=== PATIENT | male | born 1970 | race Caucasian/White ===

== ENCOUNTER → 2020-12-29 09:57 | Outpatient (BNVA) | payer MEDICAID, SELFPAY | PROVIDERS: PCP Family Medicine; Referring Provider Family Medicine; Visit Provider Nurse Practitioner Family | DX: K58.2 Mixed irritable bowel syndrome (principal); R14.0 Abdominal distension (gaseous) | CPT/HCPCS: 99202 ==

== ENCOUNTER 2021-01-04 12:51 | Outpatient (REF) | payer MEDICAID, SELFPAY ==
[2021-01-04 13:37] LABS: Hematocrit 45.9 % (42-52); Hemoglobin 16.4 g/dl (14.0-18.0); Mean Corpuscular HGB Conc 35.7 g/dl (31.0-36.0); Mean Corpuscular Hemoglobin 30.8 pg (27.0-33.0); Mean Corpuscular Volume 86.3 fL (80-98); Mean Platelet Volume 9.8 fL (9.4-12.4); Platelet Count 231 X10*3/uL (160-400); Red Blood Count 5.32 X10*6/uL (4.60-5.80); Red Cell Distribution Width 13.3 % (11.0-16.0); White Blood Count 5.9 X10*3/uL (4.8-10.8)
[2021-01-04 13:53] LABS: Alanine Aminotransferase 33 U/L (0-40); Albumin Level 4.6 g/dL (3.5-5.0); Alkaline Phosphatase 69 U/L (39-117); Anion Gap 12 (12-20); Aspartate Amino Transferase 25 U/L (5-37); Bilirubin Total 0.8 mg/dL (0.0-1.0); Blood Urea Nitrogen 14 mg/dL (9-16); C Reactive Protein 0.43 mg/dL (< or = 0.50); Calcium 9.6 mg/dL (8.4-10.2); Carbon Dioxide 26 mmol/L (22-29); Chloride 106 mmol/L (96-108); Estimated Glomerular Filt Rate > 60; Glucose Random 92 mg/dL (60-115); Lipase 31 U/L (8-78); Potassium 4.4 mmol/L (3.3-5.1); Sodium 140 mmol/L (135-145); Total Protein 7.5 g/dL (6.5-8.0)
[2021-01-06 17:26] LABS: Transglutaminase Ab IgG <1.0 U/mL; Transglutaminase IgA <1.0 U/mL
== END 2021-01-04 12:52 | disposition home or self-care (01) ==
LOC: HO.LAB 12:51
PROVIDERS: PCP Family Medicine; Visit Provider Nurse Practitioner Family
DX: K58.0 Irritable bowel syndrome with diarrhea (principal); R10.11 Right upper quadrant pain; R14.0 Abdominal distension (gaseous); Z12.11 Encounter for screening for malignant neoplasm of colon
CPT/HCPCS: 36415; 80053; 83516; 83690; 85027; 86140

== ENCOUNTER 2021-02-01 10:21 | Outpatient (REF) | payer MEDICAID, SELFPAY | END 2021-02-01 10:22 | disposition home or self-care (01) | LOC: HO.CT 10:21 | PROVIDERS: Visit Provider Nurse Practitioner Family | DX: Z13.89 Encounter for screening for other disorder (principal) ==

== ENCOUNTER 2021-02-14 13:59 | Outpatient (REF) | payer MEDICAID, SELFPAY ==
[2021-02-14 14:47] LABS: Blood Urea Nitrogen 16 mg/dL (9-16); Estimated Glomerular Filt Rate > 60
== END 2021-02-14 14:00 | disposition home or self-care (01) ==
LOC: HO.LAB 13:59
PROVIDERS: PCP Family Medicine; Visit Provider Nurse Practitioner Family
DX: R10.9 Unspecified abdominal pain (principal)
CPT/HCPCS: 36415; 82565; 84520

== ENCOUNTER 2021-02-15 08:17 | Outpatient (REF) | payer MEDICAID, SELFPAY ==
--- NOTE | ~2021-02-15 | CT_ITS ---
EXAMINATION: CT ABDOMEN AND PELVIS WITH CONTRAST CLINICAL INFORMATION: Abdominal pain. COMPARISON: None TECHNIQUE: Multidetector volumetric images were obtained from the superior aspect of the liver through the pubic symphysis following administration 85 mL of Omnipaque 350 intravenous contrast. Sagittal and coronal reformatted images were obtained on the technologist's workstation. Oral contrast: Administered This CT examination was performed using dose optimization techniques as appropriate, variously including the following: *Automated exposure control *Adjustment of mA and/or kV according to patient size (this includes techniques or standardized protocols for targeted exams where dose is matched to indication/reason for exam; i.e. extremities or head) *Use of iterative reconstruction technique DLP: 623 mGy-cm FINDINGS: LUNG BASES: The visualized lung bases are unremarkable. LIVER, GALLBLADDER, AND BILIARY TREE: The liver is normal in size, shape, and attenuation. No focal hepatic lesion or biliary ductal dilatation is present. The gallbladder is unremarkable with no evidence of radiopaque gallstones, gallbladder wall thickening, or obvious pericholecystic inflammatory changes. PANCREAS: Unremarkable. SPLEEN: Unremarkable. ADRENAL GLANDS: Unremarkable. KIDNEYS AND URETERS: The kidneys are normal in size, shape, and attenuation. No hydronephrosis, hydroureter, or calculi seen. No perinephric stranding. BLADDER: Unremarkable. GASTROINTESTINAL TRACT: The small and large bowel are unremarkable. The appendix is nonvisualized. There is no inflammation of the mesentery. ABDOMINAL WALL: No significant hernia is appreciated. LYMPH NODES: Normal. VASCULAR: Small volume of calcifications of the wall of the abdominal aorta. Normal enhancement of the vasculature of the abdomen and the pelvis. PELVIC VISCERA: Unremarkable. OSSEOUS STRUCTURES: Unremarkable. CT/CT abdomen pelvis w con IMPRESSION: No acute abnormality CT scan abdomen pelvis.
[2021-02-15] MEDS: iohexoL 350 MG/ML 100 ML INFUS..BTL IV (10:37)
[2021-02-15] MEDS: Barium Sulfate Oral (Mocha) 450 ML ORAL.SUSP 900 ML PO (10:37)
== END 2021-02-15 08:18 | disposition home or self-care (01) ==
LOC: HO.CT 08:17
PROVIDERS: PCP Family Medicine; Visit Provider Nurse Practitioner Family
DX: R10.9 Unspecified abdominal pain (principal)
CPT/HCPCS: 74177; Q9967

== ENCOUNTER → 2021-06-29 11:00 | Outpatient (BNVA) | payer MEDICAID, SELFPAY | PROVIDERS: PCP Family Medicine; Referring Provider Family Medicine; Visit Provider Nurse Practitioner Family | DX: Z01.818 Encounter for other preprocedural examination (principal); K58.2 Mixed irritable bowel syndrome; R14.0 Abdominal distension (gaseous) | CPT/HCPCS: 99212 ==

== ENCOUNTER 2021-11-14 07:39 | Day surgery (SDC) | payer MEDICAID, SELFPAY ==
[2021-11-09 09:36] VITALS: BMI 34.1
--- NOTE | 2021-11-13 11:02 | P.CONAN_ITS ---
Documented by User: Brittaney Li NP 11/13/21 11:02 HPI - Anesthesia Eval Consult details Narrative: 51yo M for Colonoscopy [facility] Past Medical History Medical History (Updated 11/13/21 @ 07:59 by Shantell Ontiveros RN) HIV disease Family History Family History Paternal Grandmother Colon cancer Surgical History Surgical History (Updated 11/13/21 @ 08:00 by Shantell Ontiveros, RN) Hx of colonoscopy Social History Social History Alcohol intake: current Tobacco use type: Cigarette Cigarette Packs Per Day: 1 Advance Directives: No Advance Directives Information Provided: Yes Meds Allergies Allergy/AdvReac Type Severity Reaction Status Date / Time No Known Allergies Allergy Verified 06/29/21 11:07 Home Medications Medication Instructions Recorded Confirmed Last Taken Type abacavir 600 mg-dolutegravir 50 1 tab PO DAILY 12/29/20 Unknown History mg-lamivudine 300 mg tablet (Triumeq) Exam Exam Date and Time: November 13, 2021 1102 Height,Weight and Vital Signs: Height 5 ft 10 in Weight 107.955 kg Assessment and Plan Assessment Anesthesia Assessment: Chart Reviewed Documented by User: Rea Garcia MD 11/14/21 07:59 [facility] Past Medical History Medical History (Updated 11/13/21 @ 07:59 by Shantell Ontiveros RN) HIV disease Family History Family History Paternal Grandmother Colon cancer Family history of problems with anesthesia: No Surgical History Surgical History (Updated 11/13/21 @ 08:00 by Shantell Ontiveros RN) Hx of colonoscopy History of Problems with Anesthesia: No Social History Social History Alcohol intake: current Tobacco use type: Cigarette Cigarette Packs Per Day: 1 Advance Directives: No Advance Directives Information Provided: Yes Meds Allergies Allergy/AdvReac Type Severity Reaction Status Date / Time No Known Allergies Allergy Verified 06/29/21 11:07 Home Medications Medication Instructions Recorded Confirmed Last Taken Type abacavir 600 mg-dolutegravir 50 1 tab PO DAILY 12/29/20 Unknown History mg-lamivudine 300 mg tablet (Triumeq) Exam Airway Mallampati Class: III TM Dist: >3cm Neck ROM: Full Denture: Upper Heart: rrr Lungs: cta Assessment and Plan Assessment Anesthesia Assessment: Anesthesia Plan Discussed and Chart Reviewed Final Anesthetic Review Family History of Problems with Anesthesia: No History of Problems with Anesthesia: No NPO: Yes ASA Class: II Final Preanesthetic Review: No Changes in Pt Med Stat, Meds/Allgs Chart Reviewed and Consent Obtained/Reviewed Patient Risk: Intermediate Procedure Risk: Intermediate Anesthetic Plan Anesthetic Plan: MAC: Disposition: Standard PACU
[2021-11-14 08:00] VITALS: BMI 31.5
--- NOTE | 2021-11-14 08:05 | W.PM.OPN ---
Operative Note Operative Note Date of Service: 11/14/21 Narrative: Operative Information Procedure Description: Colonoscopy Indication: screening Anesthesia: MAC COLONOSCOPY Instrument: Olympus variable stiffness pediatric scope 190L Colonoscopy Monitoring: Vital signs and clinical assessment, continuous EKG monitoring, Pulse oximetry, Carbon Dioxide monitoring and blood pressure monitoring were done throughout the procedure. Colon withdrawal time was 10 minutes. Procedure: The patient was placed in the left lateral decubitis position and pre-procedure medications were administered. After a digital rectal examination of the ano-rectum, the video colonoscope was inserted into the rectum and advanced through the colon to the cecum/TI. The colonoscope was slowly withdrawn in a retrograde panoramic fashion and the colon mucosa was carefully examined including a retroflexed view of the rectum. Findings and interventions are described below. Procedure Difficulty: moderate due to looping Findings: Terminal Ileum-not intubated due to looping Cecum:normal Ascending Colon: 10 mm sessile polyp removed with cold snare Transverse Colon -normal Descending Colon:normal Sigmoid Colon: normal Rectum: Retroflexion with small internal hemorrhoids, grade I Anorectum - normal Colon preparation: Brethren Bowel Preparation Scale Right colon; 2 Transverse colon: 2 Left colon; 1-2 (0 = Unprepared colon segment with mucosa not seen due to solid stool that cannot be cleared. 1 = Portion of mucosa of the colon segment seen, but other areas of the colon segment not well seen due to staining, residual stool and/or opaque liquid. 2 = Minor amount of residual staining, small fragments of stool and/or opaque liquid, but mucosa of colon segment seen well. 3 = Entire mucosa of colon segment seen well with no residual staining, small fragments of stool or opaque liquid) Impression and Post Procedure Diagnosis: polyp internal hemorrhoids Plan: High fiber diet leaflet Avoid straining at stool, epsom salts and sitz bath, anusol supps or cream Repeat Colonoscopy in 5 years due to polyp and fair prep on the left side or earlier if clinically indicated Above findings were reviewed with the patient and relevant handouts were provided if indicated.
--- NOTE | 2021-11-14 08:06 | MHC.SHP ---
Pre-Procedural Eval Section A Date of Service: 11/14/21 Section B Chief Complaint: screening Relevant Family History (Specify if Yes): Yes Relevant Social History: Tobacco Use Present Medications: see Short Stay Collaborative assessment Medical History: Significant History (HIV) History of Previous Operations: No relevant previous surgery Allergies: Allergies Allergy/AdvReac Type Severity Reaction Status Date / Time No Known Allergies Allergy Verified 06/29/21 11:07 Review of Systems Sugical H&P ROS: Negative: Constitution, Cardiovascular, Respiratory, Neurological, Psychiatric, Hem-Onc, Allergic/Immunologic, Gastrointestinal, Genitourinary, Musculoskeletal, Integumentary, Endocrine and Eyes/Ears/Nose/Throat Exam Surgical H&P Exam: Normal: HEENT, Normal: Heart, Normal: Lungs, Normal: Extremities, Normal: Abdomen, Normal: Skin and Normal: Neurological Plan Diagnosis/Plan: Unchanged I have reviewed the history and physical and performed a pertinent physical examination on my patient. No changes have occurred unless specified.
[2021-11-14 08:09] VITALS: BP 120/83; PULSE 64; RESP 16; TEMP 35.8; O2SAT 98
[2021-11-14] MEDS: Lactated Ringers 1,000 ML 100 ML IVCONT (08:11)
[2021-11-14 09:30] VITALS: BP 102/63; PULSE 64; RESP 16; TEMP 36.1; O2SAT 94
[2021-11-14 09:45] VITALS: BP 106/77; PULSE 74; RESP 16; TEMP 36.1; O2SAT 98
== END 2021-11-14 10:19 | disposition home or self-care (01) ==
PROVIDERS: PCP Family Medicine; Visit Provider Internal Medicine Gastroenterology
PROC: 0DJD8ZZ Inspection of Lower Intestinal Tract, Via Natural or Artificial Opening Endoscopic (ICD-10-PCS; CPT 45378; principal; 2021-11-14 09:20)
DX: Z12.11 Encounter for screening for malignant neoplasm of colon (principal); K63.5 Polyp of colon; K64.0 First degree hemorrhoids; K58.2 Mixed irritable bowel syndrome; R14.0 Abdominal distension (gaseous); B20 Human immunodeficiency virus [HIV] disease; Z79.899 Other long term (current) drug therapy; F17.210 Nicotine dependence, cigarettes, uncomplicated
CPT/HCPCS: 45385; 88305

== ENCOUNTER 2023-02-10 12:17 | Outpatient (REF) | payer MEDICAID, SELFPAY ==
[2023-02-10 13:20] LABS: MANUAL DIFF FLAG NO
[2023-02-10 13:43] LABS: Basophils Absolute Auto 0.1 X10*3/uL (0.0-0.2); Basophils Percent Auto 0.9 % (0-2); Eosinophils Absolute Auto 0.3 X10*3/uL (0.0-0.4); Eosinophils Percent Auto 4.6 % (0-4); Hematocrit 43.1 % (42.0-52.0); Hemoglobin 15.6 g/dl (14.0-18.0); Imm Gran Abs Auto 0.02 X10*3/uL (0.00-0.03); Imm Gran Pct Auto 0.3 % (0.0-0.4); Lymphocytes Absolute Auto 2.6 X10*3/uL (1.2-4.9); Lymphocytes Percent Auto 44.2 % (20-40); Mean Corpuscular HGB Conc 36.2 g/dl (31.0-36.0); Mean Corpuscular Hemoglobin 30.5 pg (27.0-33.0); Mean Corpuscular Volume 84.3 fL (80.0-98.0); Mean Platelet Volume 9.6 fL (9.4-12.4); Monocytes Absolute Auto 0.6 X10*3/uL (0.1-1.2); Monocytes Percent Auto 10.9 % (2-11); Neutrophils Absolute Auto 2.3 x10*3/uL (2.0-8.3); Neutrophils Percent Auto 39.1 % (45-73); Platelet Count 266 X10*3/uL (160-400); Red Blood Count 5.11 X10*6/uL (4.60-5.80); Red Cell Distribution Width 12.5 % (11.0-16.0); White Blood Count 5.9 X10*3/uL (4.8-10.8)
[2023-02-10 14:05] LABS: Appearance Urine Clear; Color Urine Yellow; Glucose Urine UA Negative (Negative); Leukocyte Esterase Urine Negative (Negative); Nitrite Urine Negative (Negative); PH 5.5 (5.0-9.0); Specific Gravity - Urine >= 1.030 (1.005-1.025); UMIC TRIGGER UACC YES; Urine Blood Trace (Negative); Urine Ketones Negative (Negative); Urine Protein Trace mg/dL (Neg-Trace)
[2023-02-10 14:06] LABS: Alanine Aminotransferase 40 U/L (0-40); Albumin Level 4.3 g/dL (3.5-5.0); Alkaline Phosphatase 70 U/L (39-117); Anion Gap 11 (12-20); Aspartate Amino Transferase 25 U/L (5-37); Bilirubin Total 0.4 mg/dL (0.0-1.0); Blood Urea Nitrogen 15 mg/dL (9-16); Calcium 9.3 mg/dL (8.4-10.2); Carbon Dioxide 26 mmol/L (22-29); Chloride 106 mmol/L (96-108); Estimated Glomerular Filt Rate 59; Glucose Random 100 mg/dL (60-115); Potassium 3.7 mmol/L (3.3-5.1); Sodium 139 mmol/L (135-145); Total Protein 7.7 g/dL (6.5-8.0)
[2023-02-10 14:08] LABS: Bacteria Urine None Seen (None Seen); Hyaline Casts Urine 0-2 /LPF (0-2); RBC Urine 0-2 /HPF (0-2); Squamous Epithelial Cell Urine 0-2 /HPF (0-2); WBC Urine 0-5 /HPF (0-5)
[2023-02-10 14:31] LABS: Syphilis Screen Reactive (Nonreactive)
[2023-02-11 10:23] LABS: Absolute CD3 Count 1864 cells/uL (840-3060); Absolute CD4 Count 1109 cells/uL (490-1740); Absolute CD8 Count 781 cells/uL (180-1170); Absolute Lymphocytes 2600 cells/uL (850-3900); CD4 CD8 Ratio 1.42 (0.86-5.00); Percent CD3 Cells 72 % (57-85); Percent CD4 Cells 43 % (30-61); Percent CD8 Cells 30 % (12-42)
[2023-02-12 09:03] LABS: HIV RNA PCR Qn Copies <20 DETECTED copies/mL (NOT DETECTED); HIV RNA PCR Qn Log Copies <1.30 DETECTED (NOT DETECTED)
[2023-02-12 17:18] LABS: HCV Log PCR <1.18 NOT DETECTED Log IU/mL (NOT DETECTED); HepC Viral Load <15 NOT DETECTED IU/mL (NOT DETECTED)
[2023-02-12 17:43] LABS: TS Negative Control Passed; TS Panel A 0; TS Panel B 0; TS Positive Control Passed; TSpotTB Negative (Negative)
[2023-02-17 09:51] LABS: RPR Quantitative Non-Reactive (Nonreactive); T.Pallidum Particle Agg Test Reactive (Nonreactive)
== END 2023-02-10 12:18 | disposition home or self-care (01) ==
LOC: HO.HHCL 12:17
PROVIDERS: Visit Provider Student in an Organized Health Care Education/Training Program
DX: B20 Human immunodeficiency virus [HIV] disease (principal)
CPT/HCPCS: 36415; 80053; 81001; 85025; 86359; 86360; 86481; 86592; 86780; 87522; 87536

== ENCOUNTER 2023-09-08 09:39 | Outpatient (REF) | payer MEDICAID, SELFPAY ==
[2023-09-08 11:45] LABS: MANUAL DIFF FLAG NO
[2023-09-08 11:47] LABS: Basophils Absolute Auto 0.1 X10*3/uL (0.0-0.2); Eosinophils Absolute Auto 0.3 X10*3/uL (0.0-0.4); Eosinophils Percent Auto 5.3 % (0-4); Hematocrit 44.6 % (42.0-52.0); Hemoglobin 15.8 g/dl (14.0-18.0); Imm Gran Abs Auto 0.02 X10*3/uL (0.00-0.03); Imm Gran Pct Auto 0.4 % (0.0-0.4); Lymphocytes Absolute Auto 2.4 X10*3/uL (1.2-4.9); Lymphocytes Percent Auto 47.7 % (20-40); Mean Corpuscular HGB Conc 35.4 g/dl (31.0-36.0); Mean Corpuscular Hemoglobin 30.2 pg (27.0-33.0); Mean Corpuscular Volume 85.1 fL (80.0-98.0); Mean Platelet Volume 9.8 fL (9.4-12.4); Monocytes Absolute Auto 0.6 X10*3/uL (0.1-1.2); Monocytes Percent Auto 11.7 % (2-11); Neutrophils Absolute Auto 1.7 x10*3/uL (2.0-8.3); Neutrophils Percent Auto 33.9 % (45-73); Platelet Count 221 X10*3/uL (160-400); Red Blood Count 5.24 X10*6/uL (4.60-5.80); Red Cell Distribution Width 13.6 % (11.0-16.0); White Blood Count 5.1 X10*3/uL (4.8-10.8)
[2023-09-08 12:09] LABS: Alanine Aminotransferase 44 U/L (0-40); Albumin Level 4.3 g/dL (3.5-5.0); Alkaline Phosphatase 69 U/L (39-117); Anion Gap 8 (12-20); Aspartate Amino Transferase 25 U/L (5-37); Bilirubin Total 0.6 mg/dL (0.0-1.0); Blood Urea Nitrogen 14 mg/dL (9-16); Calcium 9.9 mg/dL (8.4-10.2); Carbon Dioxide 29 mmol/L (22-29); Chloride 105 mmol/L (96-108); Estimated Glomerular Filt Rate > 60; Glucose Random 106 mg/dL (60-115); Potassium 4.4 mmol/L (3.3-5.1); Sodium 138 mmol/L (135-145); Total Protein 7.5 g/dL (6.5-8.0)
[2023-09-09 12:08] LABS: Absolute CD3 Count 1839 cells/uL (840-3060); Absolute CD4 Count 1074 cells/uL (490-1740); Absolute CD8 Count 779 cells/uL (180-1170); Absolute Lymphocytes 2532 cells/uL (850-3900); CD4 CD8 Ratio 1.38 (0.86-5.00); Percent CD3 Cells 73 % (57-85); Percent CD4 Cells 42 % (30-61); Percent CD8 Cells 31 % (12-42)
[2023-09-10 09:03] LABS: HIV RNA PCR Qn Copies 71 copies/mL (NOT DETECTED); HIV RNA PCR Qn Log Copies 1.85 (NOT DETECTED)
[2023-09-11 18:19] LABS: C. Trachomatis RNA TMA, Throat NOT DETECTED; N. gonorrhoeae RNA TMA, Throat NOT DETECTED
[2023-09-12 02:48] LABS: C.Trachomatis RNA TMA, Rectal NOT DETECTED; N.Gonorrhoeae RNA TMA, Rectal NOT DETECTED
== END 2023-09-08 09:40 | disposition home or self-care (01) ==
LOC: HO.HHCL 09:39
PROVIDERS: Visit Provider Student in an Organized Health Care Education/Training Program
DX: B20 Human immunodeficiency virus [HIV] disease (principal)
CPT/HCPCS: 36415; 80053; 85025; 86359; 86360; 87491; 87536; 87591

== ENCOUNTER 2023-12-15 09:47 | Outpatient (REF) | payer MEDICAID, SELFPAY ==
[2023-12-15 12:17] LABS: Estimated Average Glucose 105 mg/dL; Hemoglobin A1c % 5.3 % (<6.0)
[2023-12-15 12:31] LABS: Cholesterol 133 mg/dL (<200); HDL Cholesterol 29 mg/dL (>40); LDL Cholesterol Calculated 61 mg/dL (<100); TSH reflex Free T4 1.59 uIU/mL (0.32-4.0); Triglycerides 217 mg/dL (<150)
[2023-12-17 19:09] LABS: HIV RNA PCR Qn Copies 145 copies/mL (NOT DETECTED); HIV RNA PCR Qn Log Copies 2.16 (NOT DETECTED)
[2023-12-20 12:53] LABS: Testosterone, Total 331 ng/dL (250-1100)
== END 2023-12-15 09:48 | disposition home or self-care (01) ==
LOC: HO.HHCL 09:47
PROVIDERS: PCP Registered Nurse; Visit Provider Student in an Organized Health Care Education/Training Program
DX: Z00.00 Encounter for general adult medical examination without abnormal findings (principal); B20 Human immunodeficiency virus [HIV] disease; R68.82 Decreased libido
CPT/HCPCS: 36415; 80061; 83036; 84403; 84443; 87536

== ENCOUNTER 2024-07-05 08:40 | Outpatient (REF) | payer MEDICAID, SELFPAY ==
[2024-07-05 11:20] LABS: MANUAL DIFF FLAG NO
[2024-07-05 11:24] LABS: Basophils Absolute Auto 0.1 X10*3/uL (0.0-0.2); Basophils Percent Auto 0.9 % (0-2); Eosinophils Absolute Auto 0.2 X10*3/uL (0.0-0.4); Eosinophils Percent Auto 3.8 % (0-4); Hemoglobin 15.7 g/dl (14.0-18.0); Imm Gran Abs Auto 0.02 X10*3/uL (0.00-0.03); Imm Gran Pct Auto 0.4 % (0.0-0.4); Lymphocytes Absolute Auto 2.3 X10*3/uL (1.2-4.9); Lymphocytes Percent Auto 43.2 % (20-40); Mean Corpuscular HGB Conc 34.9 g/dl (31.0-36.0); Mean Corpuscular Hemoglobin 30.1 pg (27.0-33.0); Mean Corpuscular Volume 86.4 fL (80.0-98.0); Mean Platelet Volume 9.8 fL (9.4-12.4); Monocytes Absolute Auto 0.5 X10*3/uL (0.1-1.2); Monocytes Percent Auto 10.2 % (2-11); Neutrophils Absolute Auto 2.2 x10*3/uL (2.0-8.3); Neutrophils Percent Auto 41.5 % (45-73); Platelet Count 219 X10*3/uL (160-400); Red Blood Count 5.21 X10*6/uL (4.60-5.80); Red Cell Distribution Width 13.4 % (11.0-16.0); White Blood Count 5.3 X10*3/uL (4.8-10.8)
[2024-07-05 11:29] LABS: Basophils Absolute Auto 0.1 X10*3/uL (0.0-0.2); Basophils Percent Auto 0.9 % (0-2); Eosinophils Absolute Auto 0.2 X10*3/uL (0.0-0.4); Eosinophils Percent Auto 3.5 % (0-4); Hematocrit 43.9 % (42.0-52.0); Hemoglobin 15.7 g/dl (14.0-18.0); Imm Gran Abs Auto 0.01 X10*3/uL (0.00-0.03); Imm Gran Pct Auto 0.2 % (0.0-0.4); Lymphocytes Absolute Auto 2.5 X10*3/uL (1.2-4.9); Lymphocytes Percent Auto 43.4 % (20-40); Mean Corpuscular HGB Conc 35.8 g/dl (31.0-36.0); Mean Corpuscular Hemoglobin 30.1 pg (27.0-33.0); Mean Corpuscular Volume 84.3 fL (80.0-98.0); Mean Platelet Volume 9.7 fL (9.4-12.4); Monocytes Absolute Auto 0.6 X10*3/uL (0.1-1.2); Monocytes Percent Auto 10.3 % (2-11); Neutrophils Absolute Auto 2.4 x10*3/uL (2.0-8.3); Neutrophils Percent Auto 41.7 % (45-73); Platelet Count 227 X10*3/uL (160-400); Red Blood Count 5.21 X10*6/uL (4.60-5.80); Red Cell Distribution Width 13.3 % (11.0-16.0); White Blood Count 5.7 X10*3/uL (4.8-10.8)
[2024-07-05 12:55] LABS: Alanine Aminotransferase 37 U/L (0-40); Albumin Level 4.4 g/dL (3.5-5.0); Alkaline Phosphatase 92 U/L (39-117); Anion Gap 14 (12-20); Aspartate Amino Transferase 36 U/L (5-37); Bilirubin Total 0.5 mg/dL (0.0-1.0); Blood Urea Nitrogen 22 mg/dL (9-16); Calcium 9.2 mg/dL (8.4-10.2); Carbon Dioxide 24 mmol/L (22-29); Chloride 103 mmol/L (96-108); Cholesterol 131 mg/dL (<200); Estimated Glomerular Filt Rate > 60; Glucose Random 105 mg/dL (60-115); HDL Cholesterol 32 mg/dL (>40); LDL Cholesterol Calculated 76 mg/dL (<100); Potassium 3.7 mmol/L (3.3-5.1); Sodium 137 mmol/L (135-145); Total Protein 7.3 g/dL (6.5-8.0); Triglycerides 119 mg/dL (<150)
[2024-07-05 13:21] LABS: Alanine Aminotransferase 33 U/L (0-40); Albumin Level 4.3 g/dL (3.5-5.0); Alkaline Phosphatase 76 U/L (39-117); Anion Gap 12 (12-20); Aspartate Amino Transferase 35 U/L (5-37); Bilirubin Total 0.4 mg/dL (0.0-1.0); Blood Urea Nitrogen 18 mg/dL (9-16); Calcium 9.1 mg/dL (8.4-10.2); Carbon Dioxide 25 mmol/L (22-29); Chloride 104 mmol/L (96-108); Estimated Glomerular Filt Rate > 60; Glucose Random 108 mg/dL (60-115); Potassium 3.7 mmol/L (3.3-5.1); Sodium 137 mmol/L (135-145); Total Protein 7.1 g/dL (6.5-8.0)
[2024-07-05 14:49] LABS: Reflex LDLD? No
[2024-07-06 04:41] LABS: ~HepC Num1 4.98 S/CO (0.00-0.79); ~Hepatitis C Antibody Reactive (Nonreactive)
[2024-07-06 11:19] LABS: RPR Rapid Plasma Reagin NON-REACTIVE (NON-REACTIVE)
[2024-07-07 04:18] LABS: HIV RNA PCR Qn Copies 370 copies/mL (NOT DETECTED); HIV RNA PCR Qn Log Copies 2.57 (NOT DETECTED)
[2024-07-08 06:22] LABS: TS Negative Control Passed; TS Panel A 0; TS Panel A 2; TS Panel B 0; TS Positive Control Passed; TSpotTB Negative (Negative)
[2024-07-08 17:47] LABS: Absolute CD3 Count 1741 cells/uL (840-3060); Absolute CD4 Count 1047 cells/uL (490-1740); Absolute CD8 Count 705 cells/uL (180-1170); Absolute Lymphocytes 2351 cells/uL (850-3900); CD4 CD8 Ratio 1.49 (0.86-5.00); Percent CD3 Cells 74 % (57-85); Percent CD4 Cells 45 % (30-61); Percent CD8 Cells 30 % (12-42)
[2024-07-09 15:38] LABS: HCV Log PCR <1.18 NOT DETECTED Log IU/mL (NOT DETECTED); HepC Viral Load <15 NOT DETECTED IU/mL (NOT DETECTED)
[2024-07-18 18:43] LABS: HIV 1 Integrase Proviral DNA DETECTED; HIV 1 PR RT Proviral DNA DETECTED
== END 2024-07-05 08:41 | disposition home or self-care (01) ==
LOC: HO.HHCL 08:40
PROVIDERS: Student in an Organized Health Care Education/Training Program; Visit Provider Internal Medicine
DX: B20 Human immunodeficiency virus [HIV] disease (principal); E78.1 Pure hyperglyceridemia
CPT/HCPCS: 36415; 80053; 80061; 85025; 86359; 86360; 86481; 86592; 86735; 86762; 86765; 86803; 87522; 87536; 87900; 87901; 87906

== ENCOUNTER → 2024-07-07 08:15 | Outpatient (BNV) | payer MEDICAID, SELFPAY | PROVIDERS: PCP Registered Nurse; Visit Provider Radiology Diagnostic Radiology | DX: Z13.820 Encounter for screening for osteoporosis (principal); M89.9 Disorder of bone, unspecified | CPT/HCPCS: 77080 ==

== ENCOUNTER 2024-07-07 08:19 | Outpatient (REF) | payer MEDICAID, SELFPAY ==
--- NOTE | ~2024-07-07 | MM_ITS ---
EXAMINATION: DXA BONE DENSITY AXIAL HISTORY: Estrogen deficiency TECHNIQUE: Omnisio Dual energy absorptiometry (DEXA) of the lumbar spine, total left hip, and femoral neck was performed. COMPARISON: There are no prior studies for comparison. FINDINGS: The bone mineral density of the lumbar spine is 1.360 with a T-score of 1.2, and a Z-score of 0.7. This is indicative of normal bone mineral density. The bone mineral density of the left total hip is 1.117 with a T-score of 0.1, and a Z-score of 0.0. This is indicative of normal bone mineral density. The bone mineral density of the left femoral neck is 1.102 with a T-score of 0.2, and a Z-score of 0.5. This is indicative of normal bone mineral density. MM/XR DEXA axial skeleton IMPRESSION: Based on bone mineral density, and according to World Health Organization (WHO) criteria, the diagnosis is consistent with normal bone mineral density. All bone density values are in grams per centimeter squared (g/cm2). Statistically, 68% of repeat scans fall within 1 SD (+/- 0.010 g/cm2 for AP spine L1-L4) and 1 SD (+/- 0.012 g/cm2 for femur total) FRAX is a trademark of the [employer]'s [place] [facility] [employer] [facility], a World Health Organization (WHO) Collaborating Center. Electronically signed by: Parker Garcia MD 07/07/2024 09:27 AM EDT
== END 2024-07-07 08:20 | disposition home or self-care (01) ==
LOC: HO.MAMMO 08:19
PROVIDERS: PCP Registered Nurse; Visit Provider Internal Medicine
DX: Z13.820 Encounter for screening for osteoporosis (principal); M89.9 Disorder of bone, unspecified; Z21 Asymptomatic human immunodeficiency virus [HIV] infection status
CPT/HCPCS: 77080

== ENCOUNTER 2024-08-25 08:40 | Outpatient (REF) | payer MEDICAID, SELFPAY ==
[2024-08-26 14:38] LABS: HIV RNA PCR Qn Copies 224 copies/mL (NOT DETECTED); HIV RNA PCR Qn Log Copies 2.35 (NOT DETECTED)
== END 2024-08-25 08:41 | disposition home or self-care (01) ==
LOC: HO.HHCL 08:40
PROVIDERS: Internal Medicine; Visit Provider Student in an Organized Health Care Education/Training Program
DX: Z21 Asymptomatic human immunodeficiency virus [HIV] infection status (principal)
CPT/HCPCS: 36415; 87536

== ENCOUNTER 2024-11-02 08:15 | Outpatient (REF) | payer MEDICAID, SELFPAY ==
[2024-11-02 11:20] LABS: MANUAL DIFF FLAG NO
[2024-11-02 11:32] LABS: Hematocrit 43.4 % (42.0-52.0); Hemoglobin 15.4 g/dl (14.0-18.0); Imm Gran Abs Auto 0.02 X10*3/uL (0.00-0.03); Imm Gran Pct Auto 0.4 % (0.0-0.4); Lymphocytes Absolute Auto 2.2 X10*3/uL (1.2-4.9); Mean Corpuscular HGB Conc 35.5 g/dl (31.0-36.0); Mean Corpuscular Hemoglobin 30.0 pg (27.0-33.0); Mean Corpuscular Volume 84.6 fL (80.0-98.0); NRBC Abs Auto 0.000 X10*3/uL (0.0-0.012); NRBC Pct Auto 0.0 /100WBC (0.0-0.2); Platelet Count 236 X10*3/uL (160-400); Red Blood Count 5.13 X10*6/uL (4.60-5.80); White Blood Count 4.9 X10*3/uL (4.8-10.8)
[2024-11-02 11:59] LABS: HBS Num1 44.86 mIU/mL (0-7.99); HBsAGNum1 0.34 S/CO (0.00-0.99); Hepatitis B Surface Antigen Negative (Negative); ~Hepatitis B Surface Antibody REACTIVE (Nonreactive)
[2024-11-02 12:12] LABS: Alanine Aminotransferase 49 U/L (0-40); Albumin Level 4.3 g/dL (3.5-5.0); Alkaline Phosphatase 68 U/L (39-117); Anion Gap 11 (12-20); Aspartate Amino Transferase 32 U/L (5-37); Blood Urea Nitrogen 19 mg/dL (9-16); Calcium 8.9 mg/dL (8.4-10.2); Carbon Dioxide 29 mmol/L (22-29); Chloride 106 mmol/L (96-108); Estimated Glomerular Filt Rate 58; Potassium 4.8 mmol/L (3.3-5.1); Sodium 141 mmol/L (135-145); Total Protein 7.3 g/dL (6.5-8.0)
[2024-11-02 13:35] LABS: CT PCR Urine NOT DETECTED (Not Detect.); NG PCR Urine NOT DETECTED (Not Detect.)
[2024-11-03 16:08] LABS: Hepatitis B Viral DNA Qn - cp NOT DETECTED Log IU/mL (NOT DETECTED); Hepatitis B Viral DNA Qn-IU/mL NOT DETECTED (NOT DETECTED)
[2024-11-04 01:43] LABS: HIV RNA PCR Qn Copies 320 copies/mL (NOT DETECTED); HIV RNA PCR Qn Log Copies 2.51 (NOT DETECTED)
== END 2024-11-02 08:16 | disposition home or self-care (01) ==
LOC: HO.HHCL 08:15
PROVIDERS: PCP Student in an Organized Health Care Education/Training Program; Referring Provider Surgery; Visit Provider Student in an Organized Health Care Education/Training Program
DX: Z21 Asymptomatic human immunodeficiency virus [HIV] infection status (principal); Z11.59 Encounter for screening for other viral diseases; Z11.8 Encounter for screening for other infectious and parasitic diseases; Z11.3 Encounter for screening for infections with a predominantly sexual mode of transmission
CPT/HCPCS: 36415; 80053; 85025; 86706; 87340; 87491; 87517; 87536; 87591

== ENCOUNTER 2024-12-01 08:13 | Outpatient (REF) | payer MEDICAID, SELFPAY ==
[2024-12-01 14:03] LABS: MANUAL DIFF FLAG NO
[2024-12-01 14:06] LABS: Hematocrit 41.5 % (42.0-52.0); Hemoglobin 14.3 g/dl (14.0-18.0); Imm Gran Abs Auto 0.04 X10*3/uL (0.00-0.03); Imm Gran Pct Auto 0.7 % (0.0-0.4); Lymphocytes Absolute Auto 2.2 X10*3/uL (1.2-4.9); Mean Corpuscular HGB Conc 34.5 g/dl (31.0-36.0); Mean Corpuscular Hemoglobin 29.7 pg (27.0-33.0); Mean Corpuscular Volume 86.1 fL (80.0-98.0); NRBC Abs Auto 0.000 X10*3/uL (0.0-0.012); NRBC Pct Auto 0.0 /100WBC (0.0-0.2); Platelet Count 254 X10*3/uL (160-400); Red Blood Count 4.82 X10*6/uL (4.60-5.80); White Blood Count 5.5 X10*3/uL (4.8-10.8)
[2024-12-01 14:27] LABS: Alanine Aminotransferase 41 U/L (0-40); Albumin Level 4.1 g/dL (3.5-5.0); Alkaline Phosphatase 67 U/L (39-117); Anion Gap 11 (12-20); Aspartate Amino Transferase 36 U/L (5-37); Blood Urea Nitrogen 19 mg/dL (9-16); Calcium 8.8 mg/dL (8.4-10.2); Carbon Dioxide 26 mmol/L (22-29); Chloride 106 mmol/L (96-108); Estimated Glomerular Filt Rate > 60; Potassium 4.0 mmol/L (3.3-5.1); Sodium 139 mmol/L (135-145); Total Protein 6.6 g/dL (6.5-8.0)
[2024-12-02 08:01] LABS: HBsAGNum1 0.40 S/CO (0.00-0.99); Hepatitis B Surface Antigen Negative (Negative)
[2024-12-02 12:48] LABS: HIV RNA PCR Qn Copies 630 copies/mL (NOT DETECTED); HIV RNA PCR Qn Log Copies 2.80 (NOT DETECTED)
== END 2024-12-01 08:14 | disposition home or self-care (01) ==
LOC: HO.CHCLDS 08:13
PROVIDERS: Visit Provider Student in an Organized Health Care Education/Training Program
DX: Z21 Asymptomatic human immunodeficiency virus [HIV] infection status (principal); Z11.59 Encounter for screening for other viral diseases
CPT/HCPCS: 36415; 80053; 85025; 87340; 87536

== ENCOUNTER 2024-12-10 08:14 | Outpatient (REF) | payer MEDICAID, SELFPAY ==
[2024-12-17 23:54] LABS: Date Viral Load Collected NG; Dolutegravir Resistance NOT PREDICTED; HIV-1 Bictegravir Resistance NOT PREDICTED; HIV-1 Cabotegravir Resistance NOT PREDICTED; HIV-1 Elvitegravir Resistance NOT PREDICTED; Raltegravir Resistance NOT PREDICTED; Value of Last HIV Viral Load NG copies/mL
== END 2024-12-10 08:15 | disposition home or self-care (01) ==
LOC: HO.CHCLDS 08:14
PROVIDERS: Visit Provider Student in an Organized Health Care Education/Training Program
DX: Z21 Asymptomatic human immunodeficiency virus [HIV] infection status (principal)
CPT/HCPCS: 36415; 87900; 87901; 87906

== ENCOUNTER 2024-12-13 12:18 | Outpatient (REF) | payer MEDICAID, SELFPAY ==
[2024-12-13 14:27] LABS: CT PCR Urine NOT DETECTED (Not Detect.); NG PCR Urine NOT DETECTED (Not Detect.)
[2024-12-15 01:13] LABS: C. Trachomatis RNA TMA, Throat NOT DETECTED (NOT DETECTED); C.Trachomatis RNA TMA, Rectal NOT DETECTED (NOT DETECTED); N. gonorrhoeae RNA TMA, Throat NOT DETECTED (NOT DETECTED); N.Gonorrhoeae RNA TMA, Rectal NOT DETECTED (NOT DETECTED)
== END 2024-12-13 12:19 | disposition home or self-care (01) ==
LOC: HO.HHCLNP 12:18
PROVIDERS: Visit Provider Student in an Organized Health Care Education/Training Program
DX: Z11.3 Encounter for screening for infections with a predominantly sexual mode of transmission (principal); Z21 Asymptomatic human immunodeficiency virus [HIV] infection status
CPT/HCPCS: 87491; 87591

== ENCOUNTER 2025-03-21 08:34 | Outpatient (REF) | payer OTHER, SELFPAY ==
--- OUTSIDE RECORDS SUMMARY | 2025-03-21 08:50 | XMS_ITS | Clinical Summary ---
Author Organization [address] Address [address] [place] [address] Phone Care Team Providers Care Banana Room Cutter Name Role Phone Physician, Pcp Unknown Primary Care Provider Evi vailable Social History Tobacco Use Types Packs/Day Years Used Date Smoking Tobacco: Never Assessed Sex and Gender Information Value Date Recorded Sex Assigned at Not on file Legal Sex Male 1:49 PM EDT Gender Identity Not on file Sexual Orientation Not on file Plan of Treatment Health Maintenance Due Date Last Done Comments Colorectal Cancer Screening: Colonoscopy 1970 DTaP,Tdap,and Td Vaccines (1 - Tdap) 1989 Hepatitis B Vaccines (1 of 3 - 19+ 3-dose series) 1989 Pneumococcal Vaccine: 50+ Ye ars (1 of 1 - PCV) 2020 Zoster Vaccines (1 of 2) 2020 Depression Screening 03/31/2024 COVID-19 Vaccine ( - 2024-2 6 season) 2024 Influenza Vaccine (#1) 2024 Cholesterol Screening (Lipid Panel) 12/14/2024 HIV Screening 12/14/2024 Hepatitis C Screening 12/14/2024 Social Influencers of Health Screening 12/14/2024 RSV Immunization Adult Patie nts (1 - 1-dose 75+ series) 2045 HIB Vaccines Aged Out No longer eligi ble based on patient's age to complete this topic HPV Vaccines Aged Out No longer eligi ble based on patient's age to complete this topic Hepatitis A Vaccines Aged Out No long er eligible based on patient's age to complete this topic IPV Vaccines Aged Out No longer eligi ble based on patient's age to complete this topic MMR Vaccines Aged Out No longer eligi ble based on patient's age to complete this topic Meningococcal ACWY Vaccine Aged Out N o longer eligible based on patient's age to complete this topic Meningococcal B Vaccine Aged Out No l onger eligible based on patient's age to complete this topic RSV Immunization Patients Un randall 20 months Aged Out No longer eligible b ased on patient's age to complete this topic Varicella Vaccines Aged Out No longer eligible based on patient's age to complete this topic Insurance MEDICAID - [place] Care Teams Banana Room Cutter Relationship Specialty Start Date End Date Physician, Pcp Unknown PCP - General 12/14/24
--- OUTSIDE RECORDS SUMMARY | 2025-03-21 08:50 | XMS_ITS | Encounter Summary ---
Author Organization [facility] Address [address] [place] [address] Care Team Providers Care Agricultural Service Technician Name Role Phone Physician, Pcp Unknown Primary Care Provider Evi vailable Encounter Details Date Type Department Care Team (Late st Contact Info) Description 12/14/2024 Lab Requisition [facility] - Main Lab [address] [facility] [place] [address] Tito Garcia, YANIV [address] [place] [phone] Testicular hypofunction Social History Tobacco Use Types Packs/Day Years Used Date Smoking Tobacco: Never Assessed Sex and Gender Information Value Date Recorded Sex Assigned at Not on file Legal Sex Male 1:49 PM EDT Gender Identity Not on file Sexual Orientation Not on file documented as of this encounter Plan of Treatment Not on file documented as of this encounter Procedures Procedure Name Priority Date/Time Associated Diagnosis Comments COMPLETE BLOOD COUNT Routine 12/14/2024 2:51 PM EDT Testicular hypofunction documented in this encounter Results * Complete blood count (12/14/2024 2:51 PM EDT) WBC 6.0 4.8 - 10.8 K/mcL LAB HEMETOLOGY METHOD 12/14/2024 6:17 PM EDT [facility] RBC 5.10 4.50 - 5.50 M/mcL LAB HEMETOLOGY METHOD 12/14/2024 6:17 PM EDT [facility] Hemoglobin 15.1 13.5 - 17.5 g/dL LAB HEMETOLOGY METHOD 12/14/2024 6:17 PM EDT [facility] Hematocrit 43.6 42.0 - 54.0 % LAB HEMETOLOGY METHOD 12/14/2024 6:17 PM EDT [facility] MCV 85.3 79.0 - 98.0 FL LAB HEMETOLOGY METHOD 12/14/2024 6:17 PM EDT [facility] MCH 29.5 27.0 - 32.0 pcg LAB HEMETOLOGY METHOD 12/14/2024 6:17 PM EDT [facility] MCHC 34.6 32.0 - 37.0 g/dL LAB HEMETOLOGY METHOD 12/14/2024 6:17 PM EDT [facility] RDW 12.9 11.0 - 15.0 % LAB HEMETOLOGY METHOD 12/14/2024 6:17 PM EDT [facility] Platelets 239 130 - 400 K/mcL LAB HEMETOLOGY METHOD 12/14/2024 6:17 PM EDT [facility] MPV 10.0 7.0 - 11.0 FL LAB HEMETOLOGY METHOD 12/14/2024 6:17 PM EDT [facility] NRBC 0.0 <1.0 % LAB HEMETOLOGY METHOD 12/14/2024 6:17 PM EDT [facility] NRBC Absolute 0.00 <0.10 K/mcL LAB HEMETOLOGY METHOD 12/14/2024 6:17 PM EDT [facility] Blood Venous blood specimen / Unknown 12/14/2024 2:51 PM EDT 12/14/2024 5:50 PM EDT us Tito PURVIS LAB BLOOD ORDERABLES Final Res ult [facility] [address] [place] [address], documented in this encounter Visit Diagnoses Diagnosis Testicular hypofunction Other testicular hypofunction documented in this encounter Care Teams Agricultural Service Technician Relationship Specialty Start Date End Date Physician, Pcp Unknown PCP - General 12/14/24 documented as of this encounter
[2025-03-21 15:20] LABS: MANUAL DIFF FLAG NO
[2025-03-21 15:32] LABS: Hematocrit 54.9 % (42.0-52.0); Hemoglobin 18.6 g/dl (14.0-18.0); Imm Gran Abs Auto 0.05 X10*3/uL (0.00-0.03); Imm Gran Pct Auto 0.8 % (0.0-0.4); Lymphocytes Absolute Auto 2.7 X10*3/uL (1.2-4.9); Mean Corpuscular HGB Conc 33.9 g/dl (31.0-36.0); Mean Corpuscular Hemoglobin 29.3 pg (27.0-33.0); Mean Corpuscular Volume 86.5 fL (80.0-98.0); NRBC Abs Auto 0.000 X10*3/uL (0.0-0.012); NRBC Pct Auto 0.0 /100WBC (0.0-0.2); Platelet Count 310 X10*3/uL (160-400); Red Blood Count 6.35 X10*6/uL (4.60-5.80); White Blood Count 6.2 X10*3/uL (4.8-10.8)
[2025-03-21 16:13] LABS: Alanine Aminotransferase 94 U/L (0-40); Albumin Level 4.6 g/dL (3.5-5.0); Alkaline Phosphatase 56 U/L (39-117); Anion Gap 13 (12-20); Aspartate Amino Transferase 53 U/L (5-37); Blood Urea Nitrogen 9 mg/dL (9-16); Calcium 9.0 mg/dL (8.4-10.2); Carbon Dioxide 27 mmol/L (22-29); Chloride 104 mmol/L (96-108); Estimated Glomerular Filt Rate > 60; Potassium 3.7 mmol/L (3.3-5.1); Sodium 140 mmol/L (135-145); Total Protein 7.5 g/dL (6.5-8.0)
== END 2025-03-21 08:35 | disposition home or self-care (01) ==
LOC: HO.CHCLDS 08:34
PROVIDERS: Visit Provider Student in an Organized Health Care Education/Training Program
DX: Z21 Asymptomatic human immunodeficiency virus [HIV] infection status (principal)
CPT/HCPCS: 36415; 80053; 85025; 86359; 86360; 87536